=== PATIENT | male | born 1955 | race Caucasian/White ===

== ENCOUNTER → 2023-07-12 08:40 | Outpatient (REF) | payer OTHER, SELFPAY | LOC: RAD 08:40 | PROVIDERS: ATTENDING PHYSICIAN Student in an Organized Health Care Education/Training Program; FAMILY PHYSICIAN Nurse Practitioner Adult Health | DX: K44.9 Diaphragmatic hernia without obstruction or gangrene (principal); K31.89 Other diseases of stomach and duodenum | CPT/HCPCS: 74221; 74250 ==

== ENCOUNTER → 2023-08-08 07:14 | Outpatient (REF) | payer OTHER, SELFPAY ==
[2023-08-08 08:21] LABS: ALT (SGPT) 25 U/L (0-50); AST (SGOT) 30 U/L (17-59); Albumin 4.1 g/dl (3.5-5.0); Alkaline Phosphatase 68 U/L (38-126); Amylase 69 U/L (30-110); Blood Urea Nitrogen 17 mg/dl (9-20); Calcium 9.3 mg/dl (8.4-10.2); Carbon Dioxide 27 mmol/L (22-30); Chloride 106 mmol/L (98-107); Glucose 83 mg/dl (70-99); Lipase 144 U/L (23-300); Potassium 4.3 mmol/L (3.5-5.1); Sodium 137 mmol/L (135-145); Total Bilirubin 0.8 mg/dl (0.2-1.3); Total Protein 6.5 g/dl (6.3-8.2); eGFR > 60.00
== END ==
LOC: REG 07:14
PROVIDERS: ATTENDING PHYSICIAN Nurse Practitioner Adult Health
DX: R74.8 Abnormal levels of other serum enzymes (principal)
CPT/HCPCS: 36415; 80053; 82150; 83690

== ENCOUNTER 2023-09-02 06:12 | Day surgery (SDC) | payer OTHER, SELFPAY ==
[2023-08-15 07:28] VITALS: BMI 26.9
[2023-08-15 09:03] LABS: Hematocrit 44.3 % (39.0-52.0); Hemoglobin 14.8 g/dL (13.0-18.0); Mean Corp Hgb Conc. 33.4 g/dL (33.0-37.0); Mean Corpuscular Hgb 29.4 pg (27.0-31.0); Mean Corpuscular Volume 87.9 fL (80.0-94.0); Mean Platelet Volume 10.2 fL (7.4-10.4); Platelet Count 227 10^3/uL (130-400); Red Blood Cell Count 5.04 10^6/uL (4.70-6.10); Red Cell Dist. Width 13.4 % (11.5-14.5); White Blood Cell Count 7.2 10^3/uL (4.8-10.8)
[2023-08-15 09:34] LABS: Blood Urea Nitrogen 16 mg/dl (9-20); Calcium 9.3 mg/dl (8.4-10.2); Carbon Dioxide 31 mmol/L (22-30); Chloride 102 mmol/L (98-107); Estimated Creatinine Clearance 80 ml/min; Glucose 88 mg/dl (70-99); Potassium 4.2 mmol/L (3.5-5.1); Sodium 140 mmol/L (135-145); eGFR > 60.00
--- NOTE | 2023-08-16 13:23 | CM ---
Patient is scheduled for a laparoscopic hiatal hernia on 09/02/23. Spoke with patient prior to surgery via telephone to complete case management assessment and assess for discharge planning needs. Patient reports that he lives alone in a two story
home. There are two steps to enter and a flight of steps to the second floor. He currently functions independently. He has no DME and has never had VN services. He has prescription drug coverage and uses [facility] in [place].
PCP is Sharron Trujillo
Discussed discharge plans. Patient plans to return home at discharge. He states that he has people who can provide support if needed. He has no discharge planning concerns at this time and does not feel he will need VN services.
[2023-09-02] VITALS (16 sets, daily range): BP systolic 93–152; BP diastolic 56–77; BMI 26.9
[2023-09-02] MEDS: NORMOSOL-R 1000 IV ×3 (06:27→22:52)
[2023-09-02] MEDS: TYLENOL 1000 MG PO (06:27)
--- NOTE | 2023-09-02 11:58 | W.IMMPOSTOP ---
Addendum entered and electronically signed by Gaurav Nelson MD 09/02/23 14:49:
[facility]#[id number]
Original Note:
Surgical Immed Post Op Note
-
Primary Surgeon: Omar
Assisting Surgeon: VICTOR HUGO Appiah
Pre-op Diagnosis: Paraesophageal hernia
Post-op Diagnosis: Paraesophageal hernia
Procedure Performed: Laparoscopic paraesophageal hernia repair with fundoplication and intra-operative EGD
Anesthesia Type: General
Specimen / Cultures: None
Estimated Blood Loss: 7 cc
Complications: None
Operative Findings:
1. 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
2. > 3 cm esophageal mobilization
3. Posterior crural closure with 0 silk x5
4. Loose floppy 2 cm Toupet fundoplication over 56 Fr Bougie
5. Bl vagi identified and protected, no plural violation
6. EGD with esophagitis, able to traverse repair without difficulty, intact appropriately oriented fundoplication
[2023-09-02] MEDS: OFIRMEV 100 IV ×2 (12:59→19:21)
--- NOTE | 2023-09-02 16:25 | PTCARENOTE ---
Patient admitted from pacu post paraesophageal hernia repair.Patient rates his pain at a 5 out of 10 in his shoulders.All 5 lap sites are dry without drainage.The patient is in his bed with the call huffman in reach.
[2023-09-03] MEDS: OFIRMEV 100 IV ×2 (00:50→06:20)
[2023-09-03 03:25] VITALS: BP 143/77
[2023-09-03 07:03] LABS: Hemoglobin 13.9 g/dL (13.0-18.0); Mean Corp Hgb Conc. 33.9 g/dL (33.0-37.0); Mean Corpuscular Hgb 29.4 pg (27.0-31.0); Mean Corpuscular Volume 86.7 fL (80.0-94.0); Mean Platelet Volume 9.7 fL (7.4-10.4); Platelet Count 196 10^3/uL (130-400); Red Blood Cell Count 4.73 10^6/uL (4.70-6.10); Red Cell Dist. Width 13.6 % (11.5-14.5); White Blood Cell Count 16.7 10^3/uL (4.8-10.8)
[2023-09-03 07:28] LABS: Blood Urea Nitrogen 15 mg/dl (9-20); Calcium 8.6 mg/dl (8.4-10.2); Carbon Dioxide 28 mmol/L (22-30); Chloride 105 mmol/L (98-107); Estimated Creatinine Clearance 92 ml/min; Glucose 102 mg/dl (70-99); Sodium 137 mmol/L (135-145); eGFR > 60.00
[2023-09-03 07:50] VITALS: BP 147/83
[2023-09-03] MEDS: FLOMAX 0.400000000000000022 MG PO (09:21)
[2023-09-03] MEDS: NORMOSOL-R 1000 IV (09:21)
[2023-09-03 11:15] VITALS: BP 160/88
--- NOTE | 2023-09-03 15:02 | W.PN.GS2 ---
Addendum entered and electronically signed by Evin Huber MD 09/03/23 15:14:
I saw and examined the patient.
The [facility]'s note was reviewed and I agree with the note.
Comment: Doing well, denies nausea or retching. Pain well controlled. Exam approp. Plan: start clears, go to fulls later today if he does well. He has the option to go home on fulls and adv diet at home per Dr Nelson's instructions if he continues
to do well this afternoon.
Original Note:
Today's Communication / Plan
-
Advance diet
Dispo planning
Assessment / Plan
-
68 yo male who is POD #1 Laparoscopic paraesophageal hernia repair with fundoplication and intra-operative EGD
AFVSS
Labs stable
Following expected course
PRN analgesics
OOB/Ambulate
Start clear liquids today and advance to fulls
Tentative d/c today vs tomorrow pending diet tolerance/pain control
Resumed home dose of tamsulosin
Lovenox for VTE ppx
Subjective Data
-
Date of Service: September 03, 2023
Patient seen and examined at bedside with Dr. Huber. Denies n/v. Pain is minimal. Some shoulder pain overnight which has resolved. Passing flatus. Voiding well. ambulating in halls
Objective Data
-
Intake and Output
09/02/23 09/03/23 09/04/23
06:59 06:59 06:59
Intake Total 1500 / 1500
Balance 1500 / 1500
Intake:
IV fluids (Total) 1300 / 1300
normosol 200 / 200
ofirmiv 100 / 100
IV piggybacks 200 / 200
Other:
Number of approximated MODERATE 3
amounts of urine
Number of approximated LARGE 2
amounts of urine
Vital Signs
Temp Pulse Resp BP Pulse Ox
97.7 F 66 18 160/88 98
09/03/23 11:15 09/03/23 11:15 09/03/23 11:15 09/03/23 11:15 09/03/23 11:15
Lab Results
09/03/23 06:51
09/03/23 06:51
Calcium 8.6 mg/dl (8.4-10.2) 09/03/23 06:51
Physical Exam
-
NAD
ABD soft, ND, NT
Incisions with intact glue, well approximated
[2023-09-03 15:40] VITALS: BP 144/79
--- NOTE | 2023-09-03 16:18 | CM ---
CM reviewed chart and noted dc order
Call with pt to his room
No dc needs noted- family will transport home
Discharge Disposition- home,no needs, family transport
== END 2023-09-03 18:13 | disposition home or self-care (01) ==
LOC: SDS 06:12
PROVIDERS: ATTENDING PHYSICIAN Surgery; FAMILY PHYSICIAN Nurse Practitioner Adult Health
DX: K44.9 Diaphragmatic hernia without obstruction or gangrene (principal); K22.70 Barrett's esophagus without dysplasia; Z87.19 Personal history of other diseases of the digestive system
CPT/HCPCS: 43281; 36415; 71046; 80048; 85027; 93005; C1729

== ENCOUNTER → 2024-01-06 06:34 | Outpatient (REF) | payer OTHER, SELFPAY ==
[2024-01-06 08:21] LABS: PSA, Total - Diagnostic 0.08 ng/ml (0.0-4.0)
== END ==
LOC: REG 06:34
PROVIDERS: ATTENDING PHYSICIAN Nurse Practitioner Adult Health; FAMILY PHYSICIAN Family Medicine Geriatric Medicine
DX: C61 Malignant neoplasm of prostate (principal)
CPT/HCPCS: 36415; 84153

== ENCOUNTER → 2024-04-11 10:30 | Outpatient (REF) | payer OTHER, SELFPAY ==
[2024-04-11 12:43] LABS: PSA, Total - Diagnostic < 0.06 ng/ml (0.0-4.0)
[2024-04-13 01:25] LABS: % Free Testosterone <1.8 % (1.6-2.9); Free Testosterone <1 pg/mL (47-244); Sex Hormone Binding Globulin 29 nmol/L (19-76); Total Testosterone <3 ng/dL (300-720)
== END ==
LOC: REG 10:30
PROVIDERS: ATTENDING PHYSICIAN Family Medicine Geriatric Medicine; FAMILY PHYSICIAN Nurse Practitioner Adult Health
DX: C61 Malignant neoplasm of prostate (principal); Z79.818 Long term (current) use of other agents affecting estrogen receptors and estrogen levels
CPT/HCPCS: 36415; 84153; 84270; 84402; 84403

== ENCOUNTER → 2024-08-06 06:23 | Outpatient (REF) | payer OTHER, SELFPAY ==
[2024-08-06 06:55] LABS: % Basophils 0.8 % (0-2); % Eosinophils 4.9 % (0-6); % Immature Granulocytes 0.2 % (0-0.5); % Monocytes 8.7 % (1.7-9.3); % Neutrophils 67.4 % (42.2-75.2); Absolute Eosinophils 0.3 10^3/uL (0-0.7); Absolute Monocytes 0.5 10^3/uL (0.1-0.6); Absolute Neutrophils 3.6 10^3/uL (1.4-6.5); Hemoglobin 13.5 g/dL (13.0-18.0); Mean Corp Hgb Conc. 32.9 g/dL (33.0-37.0); Mean Corpuscular Volume 91.1 fL (80.0-94.0); Mean Platelet Volume 9.9 fL (7.4-10.4); Nucleated Red Blood Cells % 0 % (-); Platelet Count 208 10^3/uL (130-400); Red Cell Dist. Width 12.8 % (11.5-14.5); White Blood Cell Count 5.3 10^3/uL (4.8-10.8)
[2024-08-06 07:28] LABS: ALT (SGPT) 20 U/L (0-50); AST (SGOT) 24 U/L (17-59); Albumin 4.1 g/dl (3.5-5.0); Alkaline Phosphatase 64 U/L (38-126); Blood Urea Nitrogen 14 mg/dl (9-20); Calcium 9.9 mg/dl (8.4-10.2); Carbon Dioxide 31 mmol/L (22-30); Chloride 104 mmol/L (98-107); Glucose 100 mg/dl (70-99); HDL Cholesterol 80 mg/dl; LDL Cholesterol, Calculated 90 mg/dl; Potassium 4.5 mmol/L (3.5-5.1); Sodium 140 mmol/L (135-145); Total Bilirubin 0.6 mg/dl (0.2-1.3); Total Cholesterol 185 mg/dl (50-199); Total Protein 6.8 g/dl (6.3-8.2); Triglyceride 75 mg/dl (10-149); Very Low Density Lipoprotein 15 mg/dl (0-30); eGFR > 60.00
[2024-08-06 08:27] LABS: Glycohemoglobin (HgbA1c) 5.4 % (4.0-5.6)
== END ==
LOC: REG 06:23
PROVIDERS: ATTENDING PHYSICIAN Nurse Practitioner Adult Health
DX: E78.2 Mixed hyperlipidemia (principal); E66.3 Overweight; R74.8 Abnormal levels of other serum enzymes; E16.2 Hypoglycemia, unspecified
CPT/HCPCS: 36415; 80053; 80061; 83036; 84443; 85025

== ENCOUNTER → 2024-10-02 09:39 | Outpatient (REF) | payer OTHER, SELFPAY ==
[2024-10-02 11:08] LABS: PSA, Total - Diagnostic < 0.06 ng/ml (0.0-4.0)
[2024-10-03 12:39] LABS: % Free Testosterone 1.8 % (1.6-2.9); Free Testosterone 28 pg/mL (47-244); Sex Hormone Binding Globulin 30 nmol/L (19-76); Total Testosterone 155 ng/dL (300-720)
== END ==
LOC: REG 09:39
PROVIDERS: ATTENDING PHYSICIAN Family Medicine Geriatric Medicine; FAMILY PHYSICIAN Nurse Practitioner Adult Health
DX: C61 Malignant neoplasm of prostate (principal); Z79.818 Long term (current) use of other agents affecting estrogen receptors and estrogen levels
CPT/HCPCS: 36415; 84153; 84270; 84402; 84403

== ENCOUNTER → 2024-10-15 09:32 | Outpatient (REF) | payer OTHER, SELFPAY | LOC: RAD 09:32 | PROVIDERS: ATTENDING PHYSICIAN Nurse Practitioner Adult Health | DX: M79.674 Pain in right toe(s) (principal) | CPT/HCPCS: 73660 ==

== ENCOUNTER 2024-12-24 07:06 | Outpatient (RCR) | payer OTHER, SELFPAY | END 2024-12-24 23:59 | disposition home or self-care (01) | LOC: RPT 07:06 | PROVIDERS: ATTENDING PHYSICIAN Family Medicine Geriatric Medicine; FAMILY PHYSICIAN Family Medicine | DX: C61 Malignant neoplasm of prostate (principal); Z73.6 Limitation of activities due to disability; R35.0 Frequency of micturition; R39.15 Urgency of urination; M62.81 Muscle weakness (generalized); Z92.3 Personal history of irradiation | CPT/HCPCS: 97161; 97530 ==

== ENCOUNTER 2025-01-28 11:02 | Outpatient (RCR) | payer OTHER, SELFPAY | END 2025-01-28 23:59 | disposition home or self-care (01) | LOC: RPT 11:02 | PROVIDERS: ATTENDING PHYSICIAN Family Medicine Geriatric Medicine; FAMILY PHYSICIAN Family Medicine | DX: C61 Malignant neoplasm of prostate (principal); Z73.6 Limitation of activities due to disability; R35.0 Frequency of micturition; M62.81 Muscle weakness (generalized); Z92.3 Personal history of irradiation; R39.15 Urgency of urination | CPT/HCPCS: 97110; 97112; 97530 ==

== ENCOUNTER 2025-02-19 10:51 | Outpatient (RCR) | payer OTHER, SELFPAY | END 2025-02-21 11:51 | disposition home or self-care (01) | LOC: RPT 10:51 | PROVIDERS: ATTENDING PHYSICIAN Family Medicine Geriatric Medicine; FAMILY PHYSICIAN Family Medicine | DX: C61 Malignant neoplasm of prostate (principal); Z73.6 Limitation of activities due to disability; R35.0 Frequency of micturition; R39.15 Urgency of urination; M62.81 Muscle weakness (generalized); Z92.3 Personal history of irradiation; N39.41 Urge incontinence; M62.89 Other specified disorders of muscle | CPT/HCPCS: 97110; 97112 ==

== ENCOUNTER → 2025-04-17 12:00 | Outpatient (REF) | payer OTHER, SELFPAY ==
[2025-04-17 15:05] LABS: PSA, Total - Diagnostic 0.77 ng/ml (0.0-4.0)
== END ==
LOC: REG 12:00
PROVIDERS: ATTENDING PHYSICIAN Family Medicine Geriatric Medicine; FAMILY PHYSICIAN Nurse Practitioner Adult Health
DX: C61 Malignant neoplasm of prostate (principal); Z79.818 Long term (current) use of other agents affecting estrogen receptors and estrogen levels; Z12.5 Encounter for screening for malignant neoplasm of prostate
CPT/HCPCS: 36415; 84153; 84270; 84402; 84403

== ENCOUNTER → 2025-06-04 14:18 | Outpatient (REF) | payer OTHER, SELFPAY ==
[2025-06-04 16:26] LABS: PSA, Total - Diagnostic 0.44 ng/ml (0.0-4.0)
== END ==
LOC: REG 14:18
PROVIDERS: ATTENDING PHYSICIAN Family Medicine Geriatric Medicine; FAMILY PHYSICIAN Nurse Practitioner Adult Health
DX: Z12.5 Encounter for screening for malignant neoplasm of prostate (principal); C61 Malignant neoplasm of prostate
CPT/HCPCS: 36415; 84153; 84403